=== PATIENT | female | born 1965 | race Caucasian/White ===

== ENCOUNTER 2017-11-11 04:09 | Emergency (ER) | payer OTHER ==
[~2017-11-11] VITALS: Ht 167.6 cm; Wt 54.4 kg
[2017-11-11 04:18] VITALS: BP 148/90
--- NOTE | 2017-11-11 04:19 | ED UPPER/LOWER EXTREMITY COMPL ---
History of Present Illness General Chief Complaint: Lower Extremity Injury Stated Complaint: KNEE INJURY YESTERDAY Source: patient Exam Limitations: no limitations Vital Signs & Intake/Output Vital Signs & Intake/Output Vital Signs Date Time Temp Pulse Resp B/P B/P Pulse O2 O2 Flow FiO2 Mean Ox Delivery Rate 11/11 0418 97.0 109 28 148/90 97 Room Air Allergies Coded Allergies: sulfamethoxazole (From BACTRIM) (HIVES 11/11/17) trimethoprim (From BACTRIM) (HIVES 11/11/17) Reconcile Medications Ibuprofen 800 MG TABLET 1 TAB PO TID PRN PAIN Oxycodone HCl/Acetaminophen (Percocet 5-325 MG Tablet) 5 MG-325 MG TABLET 1 TAB PO 4XDP PRN PAIN TEN...[id number] Triage Note: PER PT LEAVING ED LAST NIGHT AFTER FAMILY MEMBER WAS ADFMITTED AND FELL IN PARKING LOT AND TWISTED KNEE, UNABLE TO SLEEP KEEPS SPASMING CO PAIN TO INNER ASPECT OF L KNEE PAIN WITH PALPATION Triage Nurses Notes Reviewed? yes Onset: Abrupt Duration: day(s): Timing: recent history Severity: moderate Pain/Injury Location: Left: Knee. Method of Injury: fall Modifying Factors: Improves With: rest. Worsens With: movement. Associated Symptoms: swelling HPI: 51 yo woman presents with left knee pain. She shares that she twisted it in the parking lot. She did not fall directly on her knee. She had no other injury. "I know I twisted my knee.. but now it really hurts... I feel like a spasm in my knee." She notes no ankle or hip pain, no swelling of calf or thigh. She is able to ambulate, but with knee discomfort. Past History Travel History Traveled to [place] past 21 day No Medical History Any Pertinent Medical History? see below for history Neurological: NONE EENT: NONE Cardiovascular: NONE Respiratory: NONE Gastrointestinal: NONE Hepatic: NONE Renal: NONE Musculoskeletal: NONE Psychiatric: NONE Endocrine: NONE Surgical History Surgical History: none Psychosocial History What is your primary language Telugu Tobacco Use: Current Daily Use Daily Tobacco Use Amount/Type: => 5 Cigarettes daily Family History Hx Contributory? No Review of Systems Review of Systems Constitutional: Reports: no symptoms. EENTM: Reports: no symptoms. Respiratory: Reports: no symptoms. Cardiovascular: Reports: no symptoms. Gastrointestinal/Abdominal: Reports: no symptoms. Genitourinary: Reports: no symptoms. Musculoskeletal: Reports: no symptoms. Skin: Reports: no symptoms. Neurological/Psychological: Reports: no symptoms. Hematologic/Endocrine: Reports: no symptoms. Immunological: Reports: no symptoms. All Other Systems: Reviewed and Negative Physical Exam Physical Exam General Appearance: well developed/nourished, mild distress Head: atraumatic Eyes: Bilateral: PERRL, EOMI. Ears, Nose, Throat: normal pharynx, normal ENT inspection, hearing grossly normal Neck: normal inspection, supple Cardiovascular/Respiratory: regular rate/rhythm Back: normal inspection Knee Left: mild small effusion, pain elicited with tension placed upon medical collateral ligaments. no deformity. no focal bony deformity Skin: intact, normal color, warm/dry Lymphatic: no anterior cervical rita Progress Differential Diagnosis: left knee sprain vs meniscus injury. Plan of Care: Orders Procedure Date/time Status Durable Medical Equipment 11/11 422 Active Departure Departure Disposition: HOME OR SELF CARE Condition: Stable Clinical Impression Primary Impression: Left knee sprain Referrals: [facility] ,Phil Serrano (PCP/Family) Departure Forms: Customer Survey General Discharge Information Prescriptions: Current Visit Scripts Oxycodone HCl/Acetaminophen (Percocet 5-325 MG Tablet) 1 TAB PO 4XDP PRN PAIN #10 TAB TEN...[id number] Ibuprofen 1 TAB PO TID PRN PAIN #90 TAB Comments 11/11/17, 4:35am.... discussed at length... pt wishes to defer the xray... brittanie wrap placed by RN. crutches given. Rx for ibuprofen/percocet given. pt referred to ortho.
[2017-11-11] MEDS ORDERED: PERCOCET 5-3251 EACH PO (04:24)
[2017-11-11] MEDS ORDERED: IBUPROFEN800 M1 PO (04:24)
== END 2017-11-11 04:43 ==
LOC: ERH 04:09
DX: S83.92XA Sprain of unspecified site of left knee, initial encounter (principal); X58.XXXA Exposure to other specified factors, initial encounter; Y92.481 Parking lot as the place of occurrence of the external cause; Y93.9 Activity, unspecified
CPT/HCPCS: J1885